=== PATIENT | male | born 1965 | race Caucasian/White ===

== ENCOUNTER 2018-05-20 21:58 | Emergency (ER) | payer OTHER ==
--- NOTE | 2018-05-20 22:28 | ERPHSYRPT ---
- History of Present Illness Time Seen by Provider: 05/20/18 22:10 Source: patient, family Exam Limitations: clinical condition Patient Subjective Stated Complaint: grand mal seizure, agonal breathing, loss of urinary control, confused and agitated post ictal Triage Nursing Assessment: Pt alert and oriented x 3. Pupils 6mm bilaterally reactive to light. No apparent distress or injury. Answers questions appropriately. Physician History: 52 y/o white male with extensive h/o consumption of alcohol. 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 similar episode 1 week ago. spouse hx contradicts pts story. pt states he has not slept but 6 hours in 48 hours. spouse states he slept 6 hours last pm and 12 hours the night before. pt states he has stopped drinking but spouse states he drank etoh as recent as today and sig amount last pm. pt is receiving meds that are his spouses rx for different ailments and complaints. he lost bladder control during seizure was postictal after seizure completed. pt denies headache, cp, soa and abd pain. Timing/Duration: today Character of Deficits: none Deficits: no difficulties Baseline/Normal Cognition: alert oriented x 3 Current Cognition: alert oriented x 3 Baseline Gait: walks w/o assistance Associated Symptoms: seizures, No confusion, No nausea, No vomiting, No slurred speech, No trouble walking, No headache Allergies/Adverse Reactions: Penicillins Allergy (Verified 05/20/18 22:25) Home Medications: Buspirone HCl 5 mg [Buspar 5 mg] 5 mg PO BID 05/20/18 [History] Gabapentin 800 mg PO BID 05/20/18 [History] Sertraline HCl 100 mg PO DAILY 05/20/18 [History] Hx Tetanus, Diphtheria Vaccination/Date Given: No - Review of Systems Constitutional: No Symptoms Eyes: No Symptoms Ears, Nose, & Throat: No Symptoms Respiratory: No Symptoms Cardiac: No Symptoms Abdominal/Gastrointestinal: No Symptoms Genitourinary Symptoms: No Symptoms Musculoskeletal: No Symptoms Skin: No Symptoms Neurological: Seizure, No Headache Psychological: No Symptoms Endocrine: No Symptoms Hematologic/Lymphatic: No Symptoms Immunological/Allergic: No Symptoms All Other Systems: Reviewed and Negative - Past Medical History Pertinent Past Medical History: Yes Neurological History: No Pertinent History ENT History: No Pertinent History Cardiac History: No Pertinent History Respiratory History: No Pertinent History Endocrine Medical History: No Pertinent History Musculoskeletal History: No Pertinent History GI Medical History: No Pertinent History History: No Pertinent History Male Reproductive Disorders: No Pertinent History - Past Surgical History Neuro Surgical History: No Pertinent History Cardiac: No Pertinent History Respiratory: No Pertinent History Gastrointestinal: No Pertinent History Genitourinary: No Pertinent History Musculoskeletal: No Pertinent History Male Surgical History: No Pertinent History - Social History Smoking Status: Current every day smoker How long have you smoked: 15 - Nursing Vital Signs Nursing Vital Signs: Initial Vital Signs Temperature 99.3 F 05/20/18 21:59 Pulse Rate 109 H 05/20/18 21:59 Respiratory Rate 16 05/20/18 21:59 Blood Pressure 183/114 05/20/18 21:59 O2 Sat by Pulse Oximetry 99 05/20/18 21:59 Pain Scale Pain Intensity 0 - [place] Coma Scale Best Eye Response (Lorenzo): (4) open spontaneously Best Verbal Response ([place]): (5) oriented Best Motor Response ([place]): (6) obeys commands Lorenzo Total: 15 - Physical Exam General Appearance: no apparent distress, alert, anxiety Eye Exam: bilateral eye: normal inspection, PERRL, EOMI Ears, Nose, Throat Exam: normal ENT inspection, TMs normal, moist mucous membranes Neck Exam: normal inspection, non-tender, supple, full range of motion Respiratory: normal breath sounds, lungs clear, airway intact, No chest tenderness, No respiratory distress, No accessory muscle use, No rhonchi, No wheezing, No stridor Cardiovascular: regular rate/rhythm, normal heart sounds, normal peripheral pulses Gastrointestinal: soft, normal bowel sounds, No tenderness, No guarding, No rebound Rectal Exam: not done Back Exam: normal inspection, normal range of motion, CVA tenderness Extremity Exam: normal inspection, normal range of motion, pelvis stable Mental Status: alert, oriented x 3, 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 Exam: normal hearing, normal speech, PERRL, tongue midline Coordination/Gait: normal finger to nose Motor/Sensory: no motor deficit, no sensory deficit Skin Exam: warm, dry, ecchymosis (areas on chest wall) SpO2 Interpretation: normal SpO2: 99 Oxygen Delivery: Room Air - Course EKG Interpreted by Me: RATE (102), Sinus Tach, NORMAL AXIS, NORMAL INTERVALS, NORMAL QRS, NORMAL ST-T Ordered Tests: Active Orders 24 hr Category Date Time Status Accucheck STAT Care 05/20/18 22:49 Active Brattice Builder STAT Care 05/20/18 22:50 Active Clean Catch Urine Specimen STAT Care 05/20/18 22:49 Active EKG-ER Only STAT Care 05/20/18 22:49 Active IV Insertion STAT Care 05/20/18 22:49 Active Pulse Oximetry (ED) STAT Care 05/20/18 22:49 Active CHEST 1 VIEW (PORTABLE) Stat Exams 05/20/18 00:06 Taken HEAD WITHOUT CONTRAST [CT] Stat Exams 05/20/18 23:40 Taken CBC W DIFF Stat Lab 05/20/18 22:49 Completed CMP Stat Lab 05/20/18 22:49 Completed ETHYL ALCOHOL Stat Lab 05/20/18 22:49 Completed PROTIME WITH INR Stat Lab 05/20/18 22:49 Completed UA W/RFX UR CULTURE Stat Lab 05/20/18 23:10 Completed Medication Summary Generic Name Dose Route Start Last Admin Trade Name Freq PRN Reason Stop Dose Admin Sodium Chloride 500 mls @ 500 mls/hr 05/20/18 23:49 05/21/18 00:03 Sodium Chloride 0.9% 500 Ml IV 05/21/18 00:48 500 mls/hr .Q1H ONE Administration Discontinued Medications Generic Name Dose Route Start Last Admin Trade Name Freq PRN Reason Stop Dose Admin Clonidine 0.1 mg 05/21/18 00:41 Catapres 0.1 Mg PO 05/21/18 00:42 STAT ONE Multivitamins/Minerals 10 ml/ 1,011.2 mls @ 250 mls/hr 05/20/18 22:53 23:18 Thiamine HCl 100 mg/ Folic IV 05/21/18 02:55 Not Given Acid 1 mg/ Sodium Chloride .Q4H3M STA Sodium Chloride Confirm 05/20/18 23:58 Sodium Chloride 0.9% 500 Ml Administered 05/20/18 23:59 Dose 500 mls @ ud IV .STK-MED ONE Lorazepam 2 mg 05/20/18 22:51 05/20/18 23:25 Ativan 2 Mg/1 Ml Vial IV 05/20/18 22:52 2 mg STAT ONE Administration Lorazepam Confirm 05/20/18 23:24 Ativan 2 Mg/1 Ml Vial Administered 05/20/18 23:25 Dose 2 mg .ROUTE .STK-MED ONE Ondansetron HCl 4 mg 05/20/18 22:49 05/20/18 23:33 Zofran 4 Mg/2 Ml Vial IV 05/20/18 22:50 4 mg STAT ONE Administration Ondansetron HCl Confirm 05/20/18 23:24 Zofran 4 Mg/2 Ml Vial Administered 05/20/18 23:25 Dose 4 mg .ROUTE .STK-MED ONE Thiamine HCl 100 mg 05/20/18 23:48 05/21/18 00:03 Thiamine 200 Mg/2 Ml IV 05/20/18 23:49 100 mg STAT ONE Administration Thiamine HCl Confirm 05/20/18 23:58 Thiamine 200 Mg/2 Ml Administered 05/20/18 23:59 Dose 200 mg .ROUTE .STK-MED ONE Lab/Rad Data: Laboratory Result Diagrams 05/20/18 22:49 05/20/18 22:49 Laboratory Results 05/20/18 05/20/18 05/20/18 Range/Units 23:10 22:49 22:49 WBC (4.0-10.5) K/mm3 RBC (4.1-5.6) M/mm3 Hgb (12.5-18.0) gm/dl Hct (42-50) % MCV (78-100) fl MCH (26-32) pg MCHC (32-36) g/dl RDW (11.5-14.0) % Plt Count (150-450) K/mm3 MPV (6-9.5) fl Gran % (36.0-66.0) % Eos # (Auto) (0-0.5) Absolute Lymphs (auto) (1.0-4.6) Absolute Monos (auto) (0.0-1.3) Lymphocytes % (24.0-44.0) % Monocytes % (0.0-12.0) % Eosinophils % (0.00-5.0) % Basophils % (0.0-0.4) % Absolute Granulocytes (1.4-6.9) Basophils # (0-0.4) PT 9.2 (8.83-12.87) SECONDS INR 0.79 L (0.8-3.0) Sodium 130 L (137-145) mmol/L Potassium 3.9 (3.5-5.1) mmol/L Chloride 91 L (98-107) mmol/L Carbon Dioxide 29 (22-30) mmol/L Anion Gap 14.1 (5-15) MEQ/L BUN 12 (9-20) mg/dL Creatinine 0.82 (0.66-1.25) mg/dL Estimated GFR > 60.0 ML/MIN Glucose 109 H (74-106) mg/dL Calcium 9.4 (8.4-10.2) mg/dL Total Bilirubin 0.40 (0.2-1.3) mg/dL AST 49 (17-59) U/L ALT 22 (0-50) U/L Alkaline Phosphatase 95 (38-126) U/L Serum Total Protein 7.2 (6.3-8.2) g/dL Albumin 4.4 (3.5-5.0) g/dL Urine Color STRAW (YELLOW) Urine Appearance CLEAR (CLEAR) Urine pH 8.0 (5-6) Ur Specific [place] 1.005 (1.005-1.025) Urine Protein NEGATIVE (Negative) Urine Ketones NEGATIVE (NEGATIVE) Urine Blood NEGATIVE (0-5) Jordan/ul Urine Nitrite NEGATIVE (NEGATIVE) Urine Bilirubin NEGATIVE (NEGATIVE) Urine Urobilinogen NEGATIVE (0-1) mg/dL Ur Leukocyte Esterase NEGATIVE (NEGATIVE) Urine WBC (Auto) NONE (0-5) /HPF Urine RBC (Auto) NONE (0-2) /HPF U Epithel Cells (Auto) NONE (FEW) /HPF Urine Bacteria (Auto) NONE (NEGATIVE) /HPF Urine Culture Reflexed NO (NO) Urine Glucose NEGATIVE (NEGATIVE) mg/dL Ethyl Alcohol < 10 (0-10) mg/dL 05/20/ Range/Units 22:49 WBC 5.6 (4.0-10.5) K/mm3 RBC 3.96 L (4.1-5.6) M/mm3 Hgb 13.7 (12.5-18.0) gm/dl Hct 38.9 L (42-50) % MCV 98.2 (78-100) fl MCH 34.5 H (26-32) pg MCHC 35.2 (32-36) g/dl RDW 16.1 H (11.5-14.0) % Plt Count 172 (150-450) K/mm3 MPV 8.7 (6-9.5) fl Gran % 60.0 (36.0-66.0) % Eos # (Auto) 0.09 (0-0.5) Absolute Lymphs (auto) 1.26 (1.0-4.6) Absolute Monos (auto) 0.77 (0.0-1.3) Lymphocytes % 22.7 L (24.0-44.0) % Monocytes % 13.9 H (0.0-12.0) % Eosinophils % 1.6 (0.00-5.0) % Basophils % 1.8 (0.0-0.4) % Absolute Granulocytes 3.33 (1.4-6.9) Basophils # 0.10 (0-0.4) PT (8.83-12.87) SECONDS INR (0.8-3.0) Sodium (137-145) mmol/L Potassium (3.5-5.1) mmol/L Chloride (98-107) mmol/L Carbon Dioxide (22-30) mmol/L Anion Gap (5-15) MEQ/L BUN (9-20) mg/dL Creatinine (0.66-1.25) mg/dL Estimated GFR ML/MIN Glucose (74-106) mg/dL Calcium (8.4-10.2) mg/dL Total Bilirubin (0.2-1.3) mg/dL AST (17-59) U/L ALT (0-50) U/L Alkaline Phosphatase (38-126) U/L Serum Total Protein (6.3-8.2) g/dL Albumin (3.5-5.0) g/dL Urine Color (YELLOW) Urine Appearance (CLEAR) Urine pH (5-6) Ur Specific [place] (1.005-1.025) Urine Protein (Negative) Urine Ketones (NEGATIVE) Urine Blood (0-5) Jordan/ul Urine Nitrite (NEGATIVE) Urine Bilirubin (NEGATIVE) Urine Urobilinogen (0-1) mg/dL Ur Leukocyte Esterase (NEGATIVE) Urine WBC (Auto) (0-5) /HPF Urine RBC (Auto) (0-2) /HPF U Epithel Cells (Auto) (FEW) /HPF Urine Bacteria (Auto) (NEGATIVE) /HPF Urine Culture Reflexed (NO) Urine Glucose (NEGATIVE) mg/dL Ethyl Alcohol (0-10) mg/dL - Progress Progress: improved Progress Note: 05/21/18 00:35 cxr-no acute process ct brain-no acute intracranial process. Counseled pt/family regarding: lab results, diagnosis, need for follow-up, rad results - Departure Time of Disposition: 00:35 Departure Disposition: Home Clinical Impression: Seizure, Chronic alcohol dependence, continuous Condition: Stable Critical Care Time: No Referrals: DOCTOR,NO FAMILY [Primary Care Provider] - Additional Instructions: avoid alcohol use. follow up later this morning with the following [facility] for further management: Martín Lyles-[phone] [facility] [phone] [facility] [place] [phone] Prescriptions: Lorazepam 1 mg [Ativan 1 MG] 1 mg PO Q8H PRN PRN #6 tablet PRN Reason: Anxiety
[2018-05-20] MEDS ORDERED: Zofran 4 MG/2 ML VIAL IV ONE (22:49)
[2018-05-20] MEDS ORDERED: Ativan 2 MG/1 ML VIAL IV ONE (22:51)
[2018-05-20] MEDS ORDERED: Vitamins For Infusion 10 ML INJECTION*** 10 ML, THIAMINE 200 MG/2 ML*** 100 MG, FOLNATE... IV STA ×4 (22:53)
[2018-05-20 23:06] LABS: BASOPHIL % 1.8 % (0.0-0.4); Eosinophil % 1.6 % (0.00-5.0); Eosinophil (Absolute #) 0.09 (0-0.5); Granulocyte Absolute (ANC) 3.33 (1.4-6.9); Hematocrit 38.9 % (42-50); Hemoglobin 13.7 gm/dl (12.5-18.0); Lymphocyte (Absolute #) 1.26 (1.0-4.6); Lymphocytes % 22.7 % (24.0-44.0); Mean Cell Volume 98.2 fl (78-100); Mean Corpuscular Hgb Concent. 35.2 g/dl (32-36); Mean Platelet Volume 8.7 fl (6-9.5); Monocyte (Absolute #) 0.77 (0.0-1.3); Monocytes % 13.9 % (0.0-12.0); Platelet Count 172 K/mm3 (150-450); Red Blood Count 3.96 M/mm3 (4.1-5.6); Red Cell Distribution Width 16.1 % (11.5-14.0); White Blood Count 5.6 K/mm3 (4.0-10.5)
[2018-05-20 23:07] LABS: INR 0.79 (0.8-3.0)
[2018-05-20 23:08] LABS: Mean Corpuscular Hemoglobin 34.5 pg (26-32)
[2018-05-20 23:23] LABS: ALBUMIN 4.4 g/dL (3.5-5.0); ALKALINE PHOSPHATASE 95 U/L (38-126); ANION GAP 14.1 MEQ/L (5-15); BLOOD UREA NITROGEN 12 mg/dL (9-20); CHLORIDE 91 mmol/L (98-107); Calcium 9.4 mg/dL (8.4-10.2); Carbon Dioxide 29 mmol/L (22-30); Creatinine 1 0.82 mg/dL (0.66-1.25); Glucose 109 mg/dL (74-106); Potassium 3.9 mmol/L (3.5-5.1); SGOT/AST 49 U/L (17-59); SGPT/ALT 22 U/L (0-50); SODIUM 130 mmol/L (137-145); Total Protein 7.2 g/dL (6.3-8.2)
[2018-05-20] MEDS ORDERED: Zofran 4 MG/2 ML VIAL ONE (23:24)
[2018-05-20] MEDS ORDERED: Ativan 2 MG/1 ML VIAL ONE (23:24)
[2018-05-20 23:26] LABS: Appearance CLEAR (CLEAR); Bilirubin NEGATIVE (NEGATIVE); Blood NEGATIVE Ery/ul (0-5); Glucose NEGATIVE (NEGATIVE); Ketones NEGATIVE (NEGATIVE); Leukocyte Esterase NEGATIVE (NEGATIVE); Nitrite NEGATIVE (NEGATIVE); Protein,Urine Dip NEGATIVE (Negative); Specific Gravity 1.005 (1.005-1.025); Urobilinogen NEGATIVE mg/dL (0-1)
[2018-05-20 23:35] LABS: ETHYL ALCOHOL < 10 mg/dL (0-10)
[2018-05-20] MEDS ORDERED: THIAMINE 200 MG/2 ML IV ONE (23:48)
[2018-05-20] MEDS ORDERED: Sodium Chloride 0.9% 500 ML 500 ML IV ONE ×2 (23:49→23:58)
[2018-05-20] MEDS ORDERED: THIAMINE 200 MG/2 ML ONE (23:58)
[2018-05-21] MEDS ORDERED: Catapres 0.1 MG PO ONE (00:41)
[2018-05-21] MEDS ORDERED: Catapres 0.1 MG ONE (00:43)
[2018-05-21 01:22] VITALS: BP 144/98; PULSE 101; O2SAT 97
--- NOTE | 2018-05-21 08:14 | XRAY ---
Indication: Status post seizure. Chest ecchymosis. Comparison: None Portable apical lordotic chest is clear. Heart and mediastinal structures within normal limits. Bony thorax intact with mild degenerative changes. Impression: Nonacute chest with chronic feature.
--- NOTE | 2018-05-21 08:16 | XRAY ---
Indication: Status post seizure with head injury. Multiple contiguous axial images obtained through the head without contrast. Comparison: None Normal appearing brain parenchyma, ventricles, and bony calvarium. Moderate mucoperiosteal thickening of the visualized left maxillary sinus. Remaining visualized paranasal sinuses and mastoid air cells are clear. Impression: No acute intracranial abnormalities. Incidental left maxillary sinus disease. Comment: Preliminary interpretation was made by [facility]. No discrepancy. CTDI 51.85
== END 2018-05-21 01:35 | disposition home or self-care (01) ==
LOC: ED 21:58
DX: R56.9 Unspecified convulsions (principal); F10.20 Alcohol dependence, uncomplicated; Z79.899 Other long term (current) drug therapy
CPT/HCPCS: 36000; 36415; 70450; 71045; 80053; 80307; 81001; 82962; 85025; 85610; 93005; 93041; 96360; 96374; 96375; 99284; J2060; J2405; A9270-GY; G0480